=== PATIENT | female | born 1985 | race Caucasian/White ===

== ENCOUNTER → 2017-05-20 | Outpatient (CLI) | payer OTHER ==
[~2017-05-20] MED LIST: NOHOMEMEDICATIONS; ONDANSETRON HCL4 M2 PO; PRENATAL
== END ==
LOC: M.LAB 11:02
DX: S99.922A Unspecified injury of left foot, initial encounter (principal); X58.XXXA Exposure to other specified factors, initial encounter; Y93.89 Activity, other specified; Y92.89 Other specified places as the place of occurrence of the external cause; Y99.8 Other external cause status

== ENCOUNTER 2018-12-17 14:18 | Emergency (ER) | payer OTHER, MEDICAID ==
[~2018-12-17] VITALS: Ht 160 cm; Wt 59.0 kg
[2018-12-17] MEDS ORDERED: BIRTH CONTROL PO (14:28)
[2018-12-17 14:43] LABS: URINE BILIRUBIN NEGATIVE (Negative); URINE BLOOD 3+ (Negative); URINE CLARITY CLEAR; URINE COLOR YELLOW; URINE GLUCOSE-RANDOM NEGATIVE (Negative); URINE KETONES NEGATIVE (Negative); URINE LEUKOCYTES-REFLEX 1+ (Negative); URINE NITRITE-REFLEX NEGATIVE (Negative); URINE PROTEIN TRACE (Negative); URINE UROBILINOGEN 0.2 E.U./dl (0.2-1.0)
[2018-12-17 15:03] LABS: SQUAMOUS >10 Many /LPF (0-3)
[2018-12-17 15:05] LABS: BACTERIA-REFLEX 1-9 Few /HPF (None Seen); CASTS None Seen /LPF (None Seen); CRYSTALS None Seen /LPF (None Seen); MUCUS None Seen strn/LPF (None Seen); URINE RBC 3-10 Few /HPF (0-2)
[2018-12-17] MEDS ORDERED: KEFLEX500 M1 PO (15:08)
[2018-12-17 15:18] VITALS: BP 141/92
== END 2018-12-17 15:36 | disposition home or self-care (01) ==
LOC: M.ERS 14:18
PROVIDERS: Personal Emergency Response Attendant
DX: N93.8 Other specified abnormal uterine and vaginal bleeding (principal)